=== PATIENT | female | born 1995 | race American Indian/Alaskan Native ===

== ENCOUNTER 2018-07-31 14:34 | Emergency (ER) | payer OTHER ==
[2018-07-31 14:40] VITALS: BP 124/52
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
--- NOTE | 2018-07-31 15:05 | XRay Report ---
LEFT WRIST, 4 views: HISTORY: Wrist pain. Routine views demonstrate the carpal bones to be well mineralized with well preserved bony mineralization and interosseous joint spaces. The carpal and adjacent articular bones have normal contours. The surrounding soft tissues are unremarkable. IMPRESSION: Normal study.
[2018-07-31] MEDS ORDERED: IBUPROFEN PO ONE (16:41)
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
== END 2018-07-31 17:17 | disposition home or self-care (01) ==
LOC: ED 14:34
DX: S63.502A Unspecified sprain of left wrist, initial encounter (principal); V49.3XXA Car occupant (driver) (passenger) injured in unspecified nontraffic accident, initial encounter; Y93.89 Activity, other specified; Y92.098 Other place in other non-institutional residence as the place of occurrence of the external cause; Y99.8 Other external cause status
CPT/HCPCS: 99283